=== PATIENT | female | born 1980 | race African-American/Black ===

== ENCOUNTER 2018-11-10 20:16 | Inpatient (IN) | payer MEDICAID, OTHER ==
[~2018-11-10] VITALS: Ht 165.1 cm; Wt 74.8 kg
[2018-11-10] MEDS ORDERED: ALPRAZOLAM 0.5 MG TABLET PO ONE (21:00)
[2018-11-10 21:39] LABS: BASOPHILS % 0.5 % (0.0-2.0); EOSINOPHILS % 0.5 % (0.0-5.0); HEMATOCRIT. 28.4 % (36.0-48.0); HEMOGLOBIN. 8.9 g/dL (12.0-16.0); LYMPHOCYTES % 14.6 % (20.0-50.0); MEAN CORPUSCULAR HEMOGLOBIN 19.6 pg (28.0-32.0); MEAN CORPUSCULAR VOLUME 62.8 fL (81.0-99.0); MEAN PLATELET VOLUME 7.3 fl (7.4-10.4); MONOCYTES % 1.5 % (2.0-8.0); NEUTROPHILS % 82.9 % (40.0-76.0); PLATELET 452 x1000/uL (130-400); RED BLOOD CELL COUNT 4.53 mill/uL (4.2-5.4); RED CELL DISTRIBUTION WIDTH 20.2 % (11.6-14.6)
[2018-11-10 21:44] LABS: CHLORIDE 107 mEq/L (98-107)
[2018-11-10 21:51] LABS: PLATELET ESTIMATE INCREASED
[2018-11-10] MEDS ORDERED: MAGNESIUM/ALUMINUM HYDROXIDE/SIMETHICONE 30ML UDC PO ONE (22:15)
[2018-11-10] MEDS ORDERED: VISCOUS LIDOCAINE 2% 15 ML UDC PO ONE (22:15)
[2018-11-10] MEDS ORDERED: ONDANSETRON HCL 4MG/2ML INJ IV ONE (23:00)
[2018-11-11] VITALS: BP 110/56
[2018-11-11] MEDS ORDERED: ASPIRIN 81MG TABLET PO ONE
[2018-11-11] MEDS ORDERED: NITROGLYCERIN 0.4MG TABLET SL SL ONE
[2018-11-11] MEDS ORDERED: ACETAMINOPHEN 325MG TABLET PO PRN (00:15)
[2018-11-11] MEDS ORDERED: MORPHINE SULFATE 2 MG/ML CPJ (NOT FOR IM USE) IV PRN (00:15)
[2018-11-11] MEDS ORDERED: HYDROCODONE/ACETAMINOPHEN 5/325MG TABLET PO PRN (00:15)
[2018-11-11] MEDS ORDERED: CLONIDINE 0.1MG TABLET PO PRN (00:15)
[2018-11-11] MEDS ORDERED: DOCUSATE SODIUM 100MG CAPSULE PO PRN (00:15)
[2018-11-11] MEDS ORDERED: ONDANSETRON HCL 4MG/2ML INJ IV PRN (00:15)
[2018-11-11 01:10] VITALS: BP 115/64
[2018-11-11 04:00] VITALS: BP 92/49
[2018-11-11 08:35] VITALS: BP 102/56
[2018-11-11] MEDS ORDERED: AMLODIPINE 10MG TABLET PO SCH (09:00)
[2018-11-11 09:06] LABS: CREATINE KINASE 82 IU/L (26-192)
[2018-11-11] MEDS: ENOXAPARIN 40MG/0.4ML SYR SUBCUT SCH ×2 (09:07→09:14)
[2018-11-11] MEDS: ASPIRIN 81MG EC TABLET PO SCH ×2 (09:09→09:14)
[2018-11-11 11:49] VITALS: BP 112/64
[2018-11-11 11:56] VITALS: BP 112/64
== END 2018-11-11 13:30 | disposition home or self-care (01) | DRG 203 ==
LOC: ER 20:16 → EDBEDREQTM 23:53 → EDBEDREQ 23:53 → SUPCPDRO 11-11 00:03 → 5WST 11-11 00:38
PROVIDERS: ADMIT Hospitalist; ATTEND Hospitalist
DX: R07.89 Other chest pain (principal); Z88.8 Allergy status to other drugs, medicaments and biological substances
CPT/HCPCS: 36415; 71045; 82550; 83880; 84484; 93005; 93306; 96374; 99285; J1650; J2405

== ENCOUNTER 2025-02-26 08:01 | Emergency (ER) | payer MEDICAID ==
[~2025-02-26] VITALS: Ht 170.2 cm; Wt 91.0 kg
[2025-02-26 08:07] VITALS: TEMP 37.1; O2SAT 98
[2025-02-26 08:43] LABS: BASOPHILS % 1.0 % (0.0-2.0); EOSINOPHILS % 4.6 % (0.0-5.0); HEMATOCRIT. 35.1 % (36.0-48.0); HEMOGLOBIN. 10.8 g/dL (12.0-16.0); LYMPHOCYTES % 32.1 % (20.0-50.0); MEAN PLATELET VOLUME 7.3 fl (7.4-10.4); MONOCYTES % 7.2 % (2.0-8.0); NEUTROPHILS % 55.1 % (40.0-76.0); PLATELET 444 x1000/uL (130-400); RED BLOOD CELL COUNT 5.26 mill/uL (4.2-5.4); RED CELL DISTRIBUTION WIDTH 19.2 % (11.6-14.6)
[2025-02-26] MEDS: HYDROCODONE/ACETAMINOPHEN 5/325MG TABLET PO ONE (08:47)
[2025-02-26] MEDS: KETOROLAC 15MG/ML VIAL IM ONE (08:47)
[2025-02-26 08:58] LABS: CREATININE 0.7 mg/dL (0.6-1.0)
[2025-02-26 08:59] LABS: UREA NITROGEN BLOOD 9 mg/dL (9-23)
[2025-02-26 09:00] LABS: ASPARTATE AMINOTRANSFERASE 15 IU/L (<34); HCG SCREEN NEGATIVE
[2025-02-26 09:01] LABS: BILIRUBIN DIRECT < 0.1 mg/dL (<=3.0); BILIRUBIN TOTAL 0.3 mg/dL (0.1-1.0); PROTEIN TOTAL 7.4 g/dL (6.0-8.3)
[2025-02-26 09:06] LABS: ADD RBC MORPHOLOGY YES
[2025-02-26 09:39] LABS: PLATELET ESTIMATE INCREASED
[2025-02-26] MEDS ORDERED: DICL75TA5 MT (10:21)
[2025-02-26] MEDS ORDERED: CYCL5TAB3 MT (10:21)
[2025-02-26 13:51] LABS: CLARITY URINE CLOUDY (CLEAR); COLOR URINE DARK YELLOW (YELLOW); GLUCOSE URINE NEGATIVE (NEGATIVE); KETONES URINE NEGATIVE (NEGATIVE); LEUKOCYTE ESTERASE URINE NEGATIVE (NEGATIVE); NITRITE URINE NEGATIVE (NEGATIVE); OCCULT BLOOD URINE NEGATIVE (NEGATIVE); PH URINE 5.0 (4.5-8.0); PROTEIN URINE TRACE (NEGATIVE); SPECIFIC GRAVITY URINE 1.036 (1.005-1.030); UROBILINOGEN URINE 1.0 E.U./dL (0.2-1.0)
[2025-02-26 14:05] LABS: BACTERIA URINE 2+; MUCUS URINE 1+ /lpf (< = 2+); RBC URINE 0-2 /hpf (0-2); SQUAMOUS EPITHELIAL CELL URINE 2+ /lpf (RARE/1+); YEAST URINE NONE SEEN
[2025-02-26 14:43] VITALS: BP 128/92; PULSE 87; RESP 18; O2SAT 98
== END 2025-02-26 15:11 | disposition home or self-care (01) ==
LOC: ER 08:01
DX: M54.32 Sciatica, left side (principal)
CPT/HCPCS: 99285; 74176; 80076; 80048; 81003; 84703; 83690; 85025; 36415; 96372; J1885